=== PATIENT | male | born 1965 | race Caucasian/White ===

== ENCOUNTER 2019-10-20 05:38 | Emergency (ER) | payer BC, OTHER ==
[~2019-10-20] VITALS: Ht 177 cm; Wt 100.0 kg
[2019-10-20] MEDS ORDERED: KETOROLAC 30 MG/ML VIAL IVP STA (06:27)
[2019-10-20] MEDS ORDERED: NS IV 1000 ML 1,000 ML IV ONE (06:27)
--- NOTE | 2019-10-20 06:34 | ED Back Pain ---
General Chief Complaint: Back Problems Stated Complaint: L BACK PAIN Nursing Triage Note: Patient advises lower left back pain that increases with movement. Patient denies any recent injury. Nursing Sepsis Screen: No Definite Risk Source of Information: Patient (GIVES SOME CONFLICTING INFORMATION) History of Present Illness Date Seen by Provider: Oct 20, 2019 Time Seen by Provider: 06:15 Initial Comments PT ARRIVES IN WHEELCHAIR FROM [facility] DEL[facility]PT PT STATES HE IS HERE BECAUSE HIS DAUGHTER JUST HAD A BABY STATES HE BEGAN HAVING RIGHT FLANK PAIN YESTERDAY MORNING PAIN IS CONSTANT, AND GETTING WORSE PAIN IS WORSE WITH ANY MOVEMENT OR WALKING NO RADIATION OF PAIN NO PARESTHESIAS OR MOTOR DEFICITS NO PROBLEMS WITH BOWEL OR BLADDER FUNCTION NO NAUSEA/VOMITING NO FEVER NO KNOWN INJURY OR UNUSUAL ACTIVITY STATES HE AND HIS SON 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, FROM [employer], DIDN'T LEAVE UNTIL AFTER SON GOT OFF WORK LAST PM AT 2230 HAS NOT TAKEN ANYTHING FOR PAIN AT ANY TIME DENIES HISTORY OF BACK PROBLEMS TO ME ( HOWEVER, PT HAS HAD MRI OF BACK YEARS AGO, FOR CHRONIC BACK PAIN ) STATES HE HAD A KIDNEY STONE 20 YEARS AGO, BUT NO PROBLEMS SINCE THEN PT HAS HISTORY OF HTN, BUT HAS NOT TAKEN ANY OF HIS MEDICATIONS TODAY Other Comments PT HERE VISITING FROM [facility] Allergies and Home Medications Allergies Coded Allergies: No Known Drug Allergies (Unverified , 10/20/19) Patient Home Medication List Home Medication List Reviewed: Yes Review of Systems Constitutional: no symptoms reported; No chills, No diaphoresis, No fever Respiratory: no symptoms reported Cardiovascular: no symptoms reported Gastrointestinal: no symptoms reported; No abdominal pain, No constipation, No diarrhea, No nausea Genitourinary: no symptoms reported; No dysuria, No frequency, No hematuria, No pain Musculoskeletal: see HPI, back pain Skin: no symptoms reported Psychiatric/Neurological: No Symptoms Reported Past Iqjmzbg-Lsnzar-Dbycmm Hx Past Med/Social Hx: Reviewed and Corrections made Patient Social History Alcohol Use: Denies Use Recreational Drug Use: Yes (+ IV DRUG USE) Drug of Choice: + IV DRUG USE Smoking Status: Current Everyday Smoker Type Used: Cigarettes Recent Foreign Travel: No Contact w/Someone Who Travel: No Recent Infectious Disease Expo: No Recent Hopitalizations: No Seasonal Allergies Seasonal Allergies: No Past Medical History Surgeries: Yes (LEFT KNEE SURGERY X 5, WITH MOST BEING SCOPES) Gallbladder, Orthopedic Respiratory: No Cardiac: Yes Hypertension Neurological: No Genitourinary: Yes Kidney Stones Gastrointestinal: No Musculoskeletal: Yes (CHRONIC LEFT KNEE PAIN) Arthritis, Chronic Back Pain Endocrine: No HEENT: No Cancer: No Psychosocial: No Integumentary: No Blood Disorders: No Physical Exam Vital Signs Vital Signs - First Documented 10/20/19 06:20 Pulse 79 Resp 14 B/P (MAP) 155/112 (126) Pulse Ox 95 O2 Delivery Room Air Capillary Refill : Less Than 3 Seconds Height, Weight, BMI Height: '" Weight: lbs. oz. kg; 31.00 BMI Method: General Appearance: No Apparent Distress, WD/WN, Other (FLAT AFFECT, DOES NOT APPEAR TO BE IN ANY DISCOMFORT OR DISTRESS, THEN WHEN HE GETS OFF ER CART AND STANDS, PT IS VERY DRAMATIC, MOANING, MOVES SLOWLY, HOLDING RIGHT FLANK.APPEARS MUCH OLDER THAN STATED AGE. SPEECH RAPID AND SOMEWHAT MUMBLED, CONSTANT MOUTH MOVEMENTS. APPEARS TO BE UNDER THE INFLUENCE OF SOME SUBSTANCE/S.) HEENT: Other (EDENTULOUS) Neck: Normal Inspection Cardiovascular: Regular Rate, Rhythm, No Edema, No Murmur Respiratory: Normal Breath Sounds, No Accessory Muscle Use, No Respiratory Distress Gastrointestinal: Non Tender, Soft Back: CVA Tenderness (R) Extremity: Normal Inspection, No Pedal Edema, Other (DTR'S INTACT. 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 Norm as Tested Skin: Normal Color, Warm/Dry; No Rash Progress/Results/Core Measures Results/Orders Lab Results Laboratory Tests Test 10/20/19 06:33 10/20/19 06:34 Range/Units Urine Color YELLOW Urine Clarity CLEAR Urine pH 6.0 5-9 Urine Specific [place] 1.020 1.016-1.022 Urine Protein NEGATIVE NEGATIVE Urine Glucose (UA) NEGATIVE NEGATIVE Urine Ketones NEGATIVE NEGATIVE Urine Nitrite NEGATIVE NEGATIVE Urine Bilirubin NEGATIVE NEGATIVE Urine Urobilinogen 0.2 < = 1.0 MG/DL Urine Leukocyte Esterase NEGATIVE NEGATIVE Urine RBC (Auto) NEGATIVE NEGATIVE Urine RBC NONE /HPF Urine WBC NONE /HPF Urine Squamous Epithelial Cells RARE /HPF Urine Crystals NONE /LPF Urine Bacteria NEGATIVE /HPF Urine Casts NONE /LPF Urine Mucus NEGATIVE /LPF Urine Culture Indicated NO Urine Opiates Screen NEGATIVE NEGATIVE Urine Oxycodone Screen NEGATIVE NEGATIVE Urine Methadone Screen NEGATIVE NEGATIVE Urine Propoxyphene Screen NEGATIVE NEGATIVE Urine Barbiturates Screen NEGATIVE NEGATIVE Ur Tricyclic Antidepressants Screen NEGATIVE NEGATIVE Urine Phencyclidine Screen NEGATIVE NEGATIVE Urine Amphetamines Screen POSITIVE H NEGATIVE Urine Methamphetamines Screen NEGATIVE NEGATIVE Urine Benzodiazepines Screen NEGATIVE NEGATIVE Urine Cocaine Screen NEGATIVE NEGATIVE Urine Cannabinoids Screen POSITIVE H NEGATIVE White Blood Count 10.8 4.3-11.0 10^3/uL Red Blood Count 4.80 4.35-5.85 10^6/uL Hemoglobin 13.1 L 13.3-17.7 G/DL Hematocrit 38 L 40-54 % Mean Corpuscular Volume 80 80-99 FL Mean Corpuscular Hemoglobin 27 25-34 PG Mean Corpuscular Hemoglobin Concent 34 32-36 G/DL Red Cell Distribution Width 15.5 H 10.0-14.5 % Platelet Count 286 130-400 10^3/uL Mean Platelet Volume 9.0 7.4-10.4 FL Neutrophils (%) (Auto) 66 42-75 % Lymphocytes (%) (Auto) 20 12-44 % Monocytes (%) (Auto) 12 0-12 % Eosinophils (%) (Auto) 2 0-10 % Basophils (%) (Auto) 1 0-10 % Neutrophils # (Auto) 7.1 1.8-7.8 X 10^3 Lymphocytes # (Auto) 2.2 1.0-4.0 X 10^3 Monocytes # (Auto) 1.3 H 0.0-1.0 X 10^3 Eosinophils # (Auto) 0.2 0.0-0.3 10^3/uL Basophils # (Auto) 0.1 0.0-0.1 10^3/uL Sodium Level 136 135-145 MMOL/L Potassium Level 4.4 3.6-5.0 MMOL/L Chloride Level 106 98-107 MMOL/L Carbon Dioxide Level 23 21-32 MMOL/L Anion Gap 7 5-14 MMOL/L Blood Urea Nitrogen 16 7-18 MG/DL Creatinine 1.13 0.60-1.30 MG/DL Estimat Glomerular Filtration Rate > 60 BUN/Creatinine Ratio 14 Glucose Level 119 H 70-105 MG/DL Calcium Level 8.9 8.5-10.1 MG/DL Corrected Calcium 9.1 8.5-10.1 MG/DL Total Bilirubin 0.4 0.1-1.0 MG/DL Aspartate Amino Transf (AST/SGOT) 27 5-34 U/L Alanine Aminotransferase (ALT/SGPT) 26 0-55 U/L Alkaline Phosphatase 81 40-136 U/L Total Protein 7.0 6.4-8.2 GM/DL Albumin 3.7 3.2-4.5 GM/DL Amylase Level 27 25-125 U/L Lipase 15 8-78 U/L Salicylates Level < 5.0 L 5.0-20.0 MG/DL Acetaminophen Level < 10 L 10-30 UG/ML Serum Alcohol < 10 <10 MG/DL My Orders Orders - PEYTON JONES DO Ct Abd/Pelvis Wo(Kidney Stone) (10/20/19 06:27) Amylase (10/20/19:27) Cbc With Automated Diff (10/20/19:) Comprehensive Metabolic Panel (10/20/19:) Lipase (10/20/19:27) Urinalysis (10/20/19:27) Acute Abd Series (10/20/19:27) Ed Iv/Invasive Line Start (10/20/19:27) Ed Iv/Invasive Line Start (10/20/19:27) Ns Iv 1000 Ml (Sodium Chloride 0.9%) (10/20/19 06:27) Acetaminophen (10/20/19:27) Alcohol (10/20/19:27) Drug Screen Stat (Urine) (10/20/19:27) Salicylate (10/20/19:27) Ketorolac Injection (Toradol Injection) (10/20/19:27) Medications Given in ED Current Medications Medications Dose Ordered Sig/Pooja Route Start Time Stop Time Status Last Admin Dose Admin Sodium Chloride 1,000 ml @ 0 mls/hr Q0M ONCE IV 10/20/19 06:27 10/20/19 06:29 DC 10/20/19 06:39 0 MLS/HR Vital Signs/I&O 10/20/19 06:20 Pulse 79 Resp 14 B/P (MAP) 155/112 (126) Pulse Ox 95 O2 Delivery Room Air Blood Pressure Mean: 126 Progress Progress Note : Progress Note PAIN RESOLVED WITH TORADOL MARKED DELAY IN OBTAINING CT REPORT. Diagnostic Imaging Comments ABDOMEN XRAYS--NO ACUTE PROCESS, PENDING RADIOLOGIST REVIEW CT ABDOMEN/PELVIS--NO ACUTE PROCESS, CALCIFICATIONS IN PROSTATE--PER RADIOLOGIST VIA PHONE AT 0819 Reviewed: Reviewed by Me, Discussed w/Radiologist Departure Impression Primary Impression: Right flank pain Additional Impressions: Illicit drug use PROSTATE CALCIFICATIONS Disposition: HOME, SELF-CARE Condition: Improved Departure-Patient Inst. Referrals: NO,LOCAL PHYSICIAN (PCP/Family) Primary Care Physician Patient Instructions: Flank Pain (DC) Add. Discharge Instructions: HOME, REST TYLENOL AND MOTRIN NEEDED FOR PAIN FOLLOW UP WITH YOUR DR THIS WEEK FOR FURTHER CARE FOR THIS PROBLEM AND FURTHER EVALUATION OF YOUR PROSTATE All discharge instructions reviewed with patient and/or family. Voiced understanding. PEYTON JONES DO Oct 20, 2019 06:34
[2019-10-20 06:52] LABS: BILIRUBIN,URINE NEGATIVE (NEGATIVE); CLARITY,URINE CLEAR; COLOR,URINE YELLOW; GLUCOSE, URINE (UA) NEGATIVE (NEGATIVE); KETONES,URINE NEGATIVE (NEGATIVE); LEUKOCYTE ESTERASE ,URINE NEGATIVE (NEGATIVE); NITRITE,URINE NEGATIVE (NEGATIVE); PROTEIN,URINE NEGATIVE (NEGATIVE)
[2019-10-20 06:56] LABS: BASOPHILS # (AUTO) 0.1 10^3/uL (0.0-0.1); BASOPHILS % (AUTO) 1 % (0-10); EOSINOPHILS # (AUTO) 0.2 10^3/uL (0.0-0.3); EOSINOPHILS % (AUTO) 2 % (0-10); HEMATOCRIT 38 % (40-54); HEMOGLOBIN 13.1 G/DL (13.3-17.7); LYMPHOCYTES # (AUTO) 2.2 X 10^3 (1.0-4.0); LYMPHOCYTES % (AUTO) 20 % (12-44); MEAN CORPUSCULAR HEMOGLOBIN 27 PG (25-34); MEAN CORPUSCULAR HGB CONC 34 G/DL (32-36); MEAN CORPUSCULAR VOLUME 80 FL (80-99); MONOCYTES # (AUTO) 1.3 X 10^3 (0.0-1.0); MONOCYTES % (AUTO) 12 % (0-12); NEUTROPHILS # (AUTO) 7.1 X 10^3 (1.8-7.8); NEUTROPHILS % (AUTO) 66 % (42-75); PLATELET COUNT 286 10^3/uL (130-400); RED CELL DISTRIBUTION WIDTH 15.5 % (10.0-14.5); WHITE BLOOD COUNT 10.8 10^3/uL (4.3-11.0)
[2019-10-20 07:00] LABS: BACTERIA,URINE NEGATIVE /HPF; SQUAMOUS EPITHELIAL CELL,UR RARE /HPF
[2019-10-20 07:05] LABS: AMPHETAMINE SCREEN, URINE POSITIVE (NEGATIVE); BARBITURATE SCREEN URINE NEGATIVE (NEGATIVE); BENZODIAZEPINES SCREEN URINE NEGATIVE (NEGATIVE); CANNABINOID SCREEN, URINE POSITIVE (NEGATIVE); COCAINE SCREEN URINE NEGATIVE (NEGATIVE); METHADONE STAT NEGATIVE (NEGATIVE); METHAMPHETAMINE SCREEN URINE S NEGATIVE (NEGATIVE); OPIATE SCREEN URINE NEGATIVE (NEGATIVE); OXYCODONE STAT NEGATIVE (NEGATIVE); PROPOXYPHENE STAT NEGATIVE (NEGATIVE); TRICYCLIC ANTIDEPRESSANTS SCRE NEGATIVE (NEGATIVE)
[2019-10-20 07:16] LABS: ALANINE AMINOTRANSFERASE 26 U/L (0-55); ALBUMIN 3.7 GM/DL (3.2-4.5); ALKALINE PHOSPHATASE 81 U/L (40-136); AMYLASE 27 U/L (25-125); BILIRUBIN,TOTAL 0.4 MG/DL (0.1-1.0); BUN/CREATININE RATIO 14; CALCIUM 8.9 MG/DL (8.5-10.1); CARBON DIOXIDE 23 MMOL/L (21-32); CHLORIDE 106 MMOL/L (98-107); CREATININE SERUM 1.13 MG/DL (0.60-1.30); GFR ESTIMATED > 60; GLUCOSE 119 MG/DL (70-105); LIPASE 15 U/L (8-78); POTASSIUM 4.4 MMOL/L (3.6-5.0); SALICYLATE < 5.0 MG/DL (5.0-20.0); SODIUM 136 MMOL/L (135-145)
[2019-10-20 07:20] LABS: ACETAMINOPHEN < 10 UG/ML (10-30)
--- NOTE | 2019-10-20 08:43 | Diagnostic Imaging Report ---
EXAMINATION: Abdominal radiographs, acute series. DATE: October 20, 2019. CLINICAL INDICATION: 53-year-old male, lower abdominal and back pain. COMPARISON: None. COMMENTS: Heart size and mediastinal contours are unremarkable. There is no identified pneumothorax. There is no large pleural effusion. There is no identified focal airspace consolidation. There is no identified pneumothorax. There are right upper quadrant surgical clips. There are gas-filled segments of small bowel in the left abdomen. There are gas-filled segments of large bowel. There is a moderate amount of stool in the right colon. Small bowel caliber is not disproportionate to colonic caliber. There is no identified pneumatosis or portal venous gas. There is no identified abnormal radiodensity overlying the expected positions of the kidneys or ureters. IMPRESSION: 1. No identified acute abdominal radiographic abnormality. Dictated by: Dictated on workstation # [id number]
--- NOTE | 2019-10-20 08:46 | Diagnostic Imaging Report ---
PROCEDURE: CT urinary tract, rule out kidney stone. TECHNIQUE: Multiple contiguous axial images were obtained through the abdomen and pelvis without the use of intravenous contrast. Auto Exposure Controls were utilized during the CT exam to meet ALARA standards for radiation dose reduction. DATE: October 20, 2019. COMPARISON: Abdominal radiographs October 20, 2019. INDICATION: 53-year-old male, lower back pain. History of renal stones. FINDINGS: There are limitations for evaluation of the abdominal organs, neoplastic processes, abscess, and limited evaluation of the vasculature relating to the lack of intravenous contrast. The visualized portions of the lung bases are clear. The heart is not enlarged. There is no identified pericardial effusion. The liver is normal in size and contour. There is a benign cyst in the liver on axial image 34 measuring 12 mm in size. There is an additional low-attenuation lesion in the liver on axial image 16 too small to characterize at 8 mm in size. The patient is status post cholecystectomy. There is no biliary ductal dilation. Pancreas is unremarkable in appearance. Unremarkable appearance of the spleen. The adrenal glands are unremarkable. Unremarkable noncontrast evaluation of the pancreatic parenchyma. The urinary collecting systems are not distended. There is no identified renal or ureteral stone. The urinary bladder is unremarkable in appearance. The intestinal tract is not distended. The appendix is unremarkable. There is no free intraperitoneal air. There is no drainable fluid collection. There is no free pelvic fluid. There are atherosclerotic calcifications. There is no identified abnormally enlarged lymph node in the abdomen or pelvis which meets CT size criteria for adenopathy. There are bilateral L5 pars interarticularis defects. There is grade 1 anterolisthesis of L5 on S1. There is grade 1 retrolisthesis of L4 on L5. There is severe disc height loss at L5-S1. There is no identified acute bony abnormality. IMPRESSION: CT ABDOMEN AND PELVIS. 1. No identified acute abnormality in the abdomen or pelvis. 2. Bilateral L5 pars interarticularis defects with grade 1 anterolisthesis of L5 on S1. Dictated by: Dictated on workstation # [id number]
[2019-10-20 09:02] VITALS: BP 148/108
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
--- OUTSIDE RECORDS SUMMARY | 2019-10-28 02:04 | XMS REPORT | Continuity of Care Document ---
Author Author [facility] Organization [facility] Address Unknown Phone Unavailable Support Name Relationship Address Phone GARLAND JOSÉ Next Of Kin [address] [place] [address] Insurance Providers Payer Name Policy Number Subscriber Name Relationship Self Pay Galo Walker 18 Self / Same As Patient Advance Directives Directive Response Recor ded Date Advanced Directives Not applicable 05/07/13 6:35am Problems Medical Problem Onset Date Complex dental caries 05/07/13 Ear problem 05/07/13 Allergies, Adverse Reactions, Alerts Allergen Type Severity Reaction Last Updated No Known Drug Allergies 05/09/12 Medications Medication Dose Units Route Sig Qty Days Cephalexin (Keflex) 1000 Mg PO BID 5 Hydrocodone Bit/Acetaminophen (Lortab 5 Mg) 1 Tab PO Q 4H PRN 15 Ibuprofen (Motrin Ib) PRN Response Recorded Date/Time Status not known Unknown Results No Known Relevant Diagnostic Tests, Laboratory Data and/or Discharge Summary. Encounters Encounter Location Date/ Time Departed Emergency Room [facility] 05/07/13 6:35am
--- OUTSIDE RECORDS SUMMARY | 2019-10-28 02:04 | XMS REPORT | Continuity of Care Document ---
Author Author [facility] Organization [facility] Address Unknown Phone Unavailable Care Team Providers Care Plastic Sheets Supervisor Name Role Phone DELANO CROCKER MD PCP Insurance Providers Payer Name Policy Number Subscriber Name Relationship [facility] [id number] Galo Walker 18 Self / Same As Patient Advance Directives Directive Response Recorded Date/Time Advanced Directives No 10/27/15 7:03am Problems Active Problems Medical Problem Onset Date Status Complex dental caries 05/07/2013 Chronic Contusion of toe ~02/27/2014 Acute Dental caries ~05/11/2014 Acute Ear problem 05/07/2013 Resolved Pain, dental ~05/11/2014 Acute Palpitations Unknown Acute Medications Current Home Medications Medication Dose Units Route Directions Days/Qty Instructions Star t Date Amphetamine Aspartate/Sulfate 5 Mg 5 Mg ORAL Daily 10/27/15 Atenolol (Tenormin) 25 Mg 25 Mg ORAL Daily 10/27/15 Multivitamins,Ther W-Minerals 1 Each 1 Each ORAL Daily 10/27/15 Past Home Medications Medication Directions Ordered Status Ibuprofen 200 Mg Tablet, As Needed 05/07/13 Discont inued Hydrocodone Bit/Acetaminophen 1 Tab Tab, 1 Tab Oral Q 4H Prn 05/07/13 Discontinued Cephalexin 500 Mg Capsule, 1000 Mg Oral Twice A Day 05/07/13 Discontinued Acetaminophen/Hydrocodone Bitart 1 Each Tablet, 1 Each Oral Every 4HRS as needed for Pain 03/01/14 Discontinued Hydrocodone Bit/Acetaminophen 1 Each Tablet, 1 Each Or al Three Times A Day as needed for Pain 05/11/14 Discontinued Amoxicillin 500 Mg Capsule, 500 Mg Oral Three Times A Day Discontinued Social History Query Response Start Date Stop Date Smoking Status Current every day smoker Hospital Discharge Instructions Current inpatient/outpatient. Discharge instructions are currently unavailable. Plan of Care Prescriptions Functional Status No functional status results. Allergies, Adverse Reactions, Alerts No known allergies. Immunizations No immunization records. Vital Signs Acute Vital Signs Vital Response Date/Time Temperature (Fahrenheit) 98 10/27/2015 7:03 am Pulse 66 bpm 10/27/2015 9:45am Respirations 18 10/27/2015 9:45am Results Laboratory Results Test Name Result Units Flags Reference Collection Date/Time Result Date/Time Comments White Blood Count 7.05 10^3uL 4.0-11.0 10/27/2015 7:09 7:22am Red Blood Count 4.94 10^6uL 4.50-5.50 10/27/2015 7:0910/11 7:22am Hemoglobin 14.3 g/dL 13.5-17.0 10/27/2015 7:09 6 7:22am Hematocrit 41.10 % 39.00-50.00 10/27/2015 7:09am 016 7:22am Mean Corpuscular Volume 83 FL 80-100 10/27/2015 7:09a m 10/27/2015 7:22am Mean Corpuscular Hemoglobin 28.9 PG 26.0-34.0 7:0910/27/2015 7:22am Mean Corpuscular Hemoglobin Concent 34.8 g/dL 31.0 -37.0 10/27/2015 7:0910/27/2015 7:22am Red Cell Distribution Width 13.2 % 11.8-15.6 7:0910/27/2015 7:22am Platelet Count 254 10^3uL 150-450 10/27/2015 7:09am 016 7:22am Mean Platelet Volume 9.3 FL 6.0-9.5 10/27/2015 7:09am 0 10/27/2015 7:22am Neutrophils (%) (Auto) 51 % 51-67 10/27/2015 7:09am 10/27/2015 7:22am Lymphocytes (%) (Auto) 37 % 20-46 10/27/2015 7:09am 10/27/2015 7:22am Monocytes (%) (Auto) 10 % 3-11 10/27/2015 7:09am 0 10/27/2015 7:22am Eosinophils (%) (Auto) 2 % 0-4 10/27/2015 7:09am 10/27/2015 7:22am Basophils (%) (Auto) 1 % 0-2 10/27/2015 7:09am 0 10/27/2015 7:22am Neutrophils # (Auto) 3.6 X10^3 10/27/2015 7:09am 0 10/27/2015 7:22am Lymphocytes # (Auto) 2.6 X10^3 10/27/2015 7:09am 0 10/27/2015 7:22am Monocytes # (Auto) 0.7 X10^3 10/27/2015 7:09am 7:22am Eosinophils # (Auto) 0.1 10^3uL 10/27/2015 7:09am 0 10/27/2015 7:22am Basophils # (Auto) 0.0 10^3uL 10/27/2015 7:09am 7:22am Urine Collection Type CLEAN CATCH 10/27/2015 8:5 7am 10/27/2015 9:17am Urine Color Yellow 10/27/2015 8:57am 10/27/2015 9:03am Urine Clarity Clear 10/27/2015 8:57am 10/27/19 16 9:03am Urine pH 6.0 5.0 - 8.0 10/27/2015 8:57am 10/27/2015 9:03am Urine Specific [place] 1.015 1.005-1.030 10/27 8:57am 10/27/2015 9:03am Urine Protein Negative Negative 10/27/2015 8:57am 2015 9:03am Urine Glucose (UA) Negative Negative 10/27/2015 8:57am 0 10/27/2015 9:03am Urine RBC (Auto) Negative Negative 10/27/2015 8:57am 9:03am Urine Ketones Negative Negative 10/27/2015 8:57am 2015 9:03am Urine Nitrite Negative Negative 10/27/2015 8:57am 2015 9:03am Urine Bilirubin Negative Negative 10/27/2015 8:57am 10/11 9:03am Urine Urobilinogen 0.2 mg/dL 0.2-1.0 10/27/2015 8:57am 9:03am Urine Leukocyte Esterase Negative Negative 10/27 8:57am 10/27/2015 9:03am Sodium Level 139 mmol/L 135-150 10/27/2015 7:09am 6 7:35am Potassium Level 3.8 mmol/L 3.5-5.1 10/27/2015 7:09am 2015 7:35am Chloride Level 107 mmol/L 98-108 10/27/2015 7:09am 016 7:35am Carbon Dioxide Level 25 mmol/L 22-29 10/27/2015 7:09am 0 10/27/2015 7:35am Anion Gap 11.7 MEQ/L 3-15 10/27/2015 7:09am 10/27/2015 7 :35am Blood Urea Nitrogen 8 mg/dL # 7-18 10/27/2015 7:09am 7:35am Creatinine 0.85 mg/dL 0.8-1.5 10/27/2015 7:09am 10/27/2015 7:35am BUN/Creatinine Ratio 9 L 10-20 10/27/2015 7:09am 0 10/27/2015 7:35am Estimat Glomerular Filtration Rate 116.4 10/27/2015 7:0910/27/2015 7:35am Estimated GFR (Non- 96.2 10/27/2015 7:0910/27/2015 7:35am Glucose Level 98 mg/dL 70-110 10/27/2015 7:09am 10/27/19 7:35am Calculated Osmolality 268 mosm/L L 280-300 10/27/2015 7:09am 10/27/2015 7:35am Calcium Level 9.1 mg/dL 8.8-10.8 10/27/2015 7:09am 016 7:35am Calcium/Ionized Calcium Ratio 4.0 mg/dL 3.8-4.6 10/27/2015 7:10/27/2015 7:35am Total Bilirubin 0.4 mg/dL # 0.1-1.0 10/27/2015 7:2015 7:35am Alkaline Phosphatase 72 U/L 38-126 10/27/2015 7:09am 0 10/27/2015 7:35am Aspartate Amino Transf (AST/SGOT) 33 U/L 15-37 10/27/2015 7:09am 10/27/2015 7:35am Alanine Aminotransferase (ALT/SGPT) 38 U/L 30-6 5 10/27/2015 7:am 10/27/2015 7:35am Total Creatine Kinase 523 U/L *H 55-170 10/27/2015 7:10/27/2015 7:35am Results called to MICHEL MARIN who read back the results. Called by Tiffanie Guajardo at [id number] Creatine Kinase MB 5.7 ng/mL 0.0-6.0 10/27/2015 7: 7:44am Troponin I < 0.012 ng/mL 0.010-0.080 10/27/2015 7: 016 7:44am TZ-Qjc-J-Type Natriuretic Peptide 82 pg/mL 0-125 10/27/2015 7:10/27/2015 7:44am <300 ng/mL - HF unlikely Age <50 years, NT-proBNP >450 pg/mL - HF Likely Age 50-75 yrs, NT-proBNP >900 pg/mL - HF Likely Age >75 yrs, NT-proBNP >1800 - HF likely Total Protein 7.0 g/dL 6.4-8.5 10/27/2015 7:10/27/19 16 7:35am Albumin 3.9 g/dL 3.4-5.0 10/27/2015 7:10/27/2015 7:3 5am Albumin/Globulin Ratio 1.258 1.1-1.8 10/27/2015 7:10/27/2015 7:35am Thyroid Stimulating Hormone (TSH) 1.62 uIU/mL 0.46-4 .68 10/27/2015 7:09am 10/27/2015 8:08am C-Reactive Protein 0.90 mg/dL 0.0-0.9 10/27/2015 7:09am 7:35am Procedures No known history of procedures. Encounters Encounter Location Arrival/Admit Date Discharge/Depart Date Attending Provider Registered Clinic [facility] 10/27/15 8:53am MICHELLE LOERA DO Departed Emergency Room [facility] 10/27/15 7:03am 10/27/15 9:46am MICHELLE PERKINS DO
--- OUTSIDE RECORDS SUMMARY | 2019-10-28 02:04 | XMS REPORT | Continuity of Care Document ---
Author Author [facility] Address Unknown Phone Unavailable Care Team Providers [facility] Name Role Phone Grzegorz Antony MD PCP Insurance Providers Payer Name Policy Number Subscriber Name Relationship Self Pay Galo Walker 20 Self / Same A s Patient Advance Directives Directive Response Recorded Date/Time Advanced Directives No 06/12/16 2:50pm Chief Complaint and Reason for Visit Chief Complaint Pain Reason for Visit [id number] Problems Active Problems Medical Problem Onset Date Status Complex dental caries 05/07/2013 Chronic Contusion of toe ~02/27/2014 Acute Dental caries ~05/11/2014 Acute Ear problem 05/07/2013 Resolved Pain, dental ~05/11/2014 Acute Palpitations Unknown Acute Trochanteric bursitis, left hip ~06/12/2016 Acute Medications Current Home Medications Medication Dose Units Route Directions Days/Qty Instructions Star t Date Amphetamine Aspartate/Sulfate 5 Mg 5 Mg ORAL Daily 10/27/15 Atenolol (Tenormin) 25 Mg 25 Mg ORAL Daily 10/27/15 Multivitamins,Ther W-Minerals 1 Each 1 Each ORAL Daily 10/27/15 Ketorolac Tromethamine 10 Mg 10 Mg ORAL Every 6 Hours 20 06/12/16 Past Home Medications Medication Directions Ordered Status [...] Current every day smoker Hospital Discharge Instructions No hospital discharge instructions. Plan of Care Discharge Date 06/12/16 5:21pm Disposition 01 HOME OR SELF-CARE Condition at Discharge Stable Instructions/Education Provided Ketorolac (By mouth) Hip Bursitis (ED) Prescriptions See Medication Section Referrals Grzegorz Antony MD - Additional Instructions/Education Rest in bed for 1-2 days, then activity as tolerated. See your doctor next week if not improving. You may need a cortisone injection in your hip bursa. Some of your test results may not be complete prior to your leaving the Emergency Department. The Emergency Department is not authorized to give test results over the phone. Please contact the doctor's office listed in this packet of information for your final results. Follow up with your primary care physician or return to the Emergency Department for worsening or worrisome symptoms. * Emergency Department phone number: [phone], x [phone] MEDICAL RECORD If you need copies of your X-rays, call [phone]. If you need copies of your medical record, including lab results, a signed authorization for release of records will be required. A telephone call for release of Health Information is not allowed. BILLING Billing can sometimes be confusing and frustrating. To help avoid confusion in the future, please take a moment to acquaint yourself with the billing parties for services. SERVICE BILLING [facility] Physician Services [facility] Patients will receive bills for services from the appropriate provider. If you have any questions about your [facility] bill, our staff will be happy to assist you. Please call [phone], and ask for the billing department. THANK YOU for choosing [facility] as your emergency care provider! Care Plan and Goals ~~Discharge Care Plan~~ Problem: Contusion, pain to affected area, fall. Goal: Decreased contusion and pain to affected area. Instructions: follow discharge instructions Functional Status No functional status results. Allergies, Adverse Reactions, Alerts No known allergies. Immunizations No immunization records. Vital Signs Acute Vital Signs Vital Response Date/Time Temperature (Fahrenheit) 97.7 06/12/2016 10:5 9pm Pulse 71 bpm 06/12/2016 10:59pm Respirations 20 06/12/2016 10:59pm Height 5 ft 10 in Weight 196 lb Body Mass Index 28.0 kg/m^2 Results No known relevant diagnostic tests, laboratory data and/or discharge summary. Procedures No known history of procedures. Encounters Encounter Location Arrival/Admit Date Discharge/Depart Date Attending Provider Departed Emergency Room [facility] 06/12/16 2:42pm 06/12/16 5:21pm MICHELLE PERKINS DO Recent Diagnosis
== END 2019-10-20 09:04 | disposition home or self-care (01) ==
LOC: ER 05:41
DX: R10.9 Unspecified abdominal pain (principal); F19.90 Other psychoactive substance use, unspecified, uncomplicated; N42.89 Other specified disorders of prostate; F17.210 Nicotine dependence, cigarettes, uncomplicated; Z91.14 Patient's other noncompliance with medication regimen
CPT/HCPCS: 36415; 74022; 74176; 80053; 80306; 80320; 80329; 81000; 82150; 83690; 85025; 96361; 96374